=== PATIENT | female | born 1965 | race Caucasian/White ===

== ENCOUNTER 2018-12-27 21:54 | Emergency (ER) | payer SELFPAY ==
--- NOTE | 2018-12-27 22:43 | ED PDOC ---
HPI: Allergic Reaction Time Seen by Provider: 12/27/18 22:32 Chief Complaint (Nursing): Allergic Reaction Chief Complaint (Provider): Rash History Per: Patient, Family History/Exam Limitations: no limitations Additional Complaint(s): Pt reports itchy rash X 3 days, resolves on its own, swelling to bottom lip yesterday, now with swelling to upper lip and feeling throat is swollen. Has been taking only one 25 mg Benadryl dose per day. Denies SOB. Past Medical History Reviewed: Nursing Documentation, Vital Signs Vital Signs: Last Vital Signs Temp 98.6 F 12/27/18 22:22 Pulse 68 12/27/18 22:22 Resp 16 12/27/18 22:22 BP 143/88 12/27/18 22:22 Pulse Ox 100 12/27/18 22:22 - Medical History PMH: Depression - Surgical History Surgical History: Cholecystectomy - Family History Family History: States: Unknown Family Hx - Living Arrangements Living Arrangements: With Family - Social History Current smoker - smoking cessation education provided: No Alcohol: None - Allergies Allergies/Adverse Reactions: Allergies Allergy/AdvReac Type Severity Reaction Status Date / Time No Known Allergies Allergy Verified 12/27/18 22:40 Review of Systems Constitutional: Negative for: Fever, Chills ENT: Positive for: Mouth Swelling, Throat Swelling Cardiovascular: Negative for: Chest Pain Respiratory: Negative for: Cough, Shortness of Breath Gastrointestinal: Negative for: Abdominal Pain Genitourinary Female: Negative for: Dysuria, Hematuria Skin: Positive for: Rash Neurological: Negative for: Headache Physical Exam - Reviewed Nursing Documentation Reviewed: Yes Vital Signs Reviewed: Yes - Physical Exam Appears: Positive for: Well, No Acute Distress Head Exam: Positive for: ATRAUMATIC, NORMAL INSPECTION Skin: Positive for: Normal Color, Warm, Dry Eye Exam: Positive for: Normal appearance, EOMI, PERRL ENT: Positive for: Pharynx Is (Clear), Other (Mild uvula edema). Negative for: Pharyngeal Erythema, Tonsillar Swelling - ECG O2 Sat by Pulse Oximetry: 100 Disposition - Disposition Forms: [employer] (Lithuanian) Medical Decision Making Medical Decision Makin yo female with rash. - Benadryl - Pepcid - Prednisone
--- NOTE | 2018-12-27 23:10 | ED PDOC ---
- ECG O2 Sat by Pulse Oximetry: 100 (RA) Pulse Ox Interpretation: Normal Medical Decision Making Medical Decision Making: Time: 23:00 Patient care endorsed from Dr. Erickson to provider pending reevaluation. 00:35 Patient reports marked improvement of symptoms. Labs reviewed no clinically significant abnormalities. Patient is stable for discharge diagnosis is allergic reaction. Return precautions provided. 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 Scribe Attestation: Documented by Aurelio Mcclain acting as a scribe for Kris Erwin MD. Provider Scribe Attestation: All medical record entries made by the Scribe were at my direction and personally dictated by me. I have reviewed the chart and agree that the record accurately reflects my personal performance of the history, physical exam, medical decision making, and the department course for this patient. I have also personally directed, reviewed, and agree with the discharge instructions and disposition. Disposition - Clinical Impression Clinical Impression: Allergic reaction - POA Present On Arrival: None - Disposition Referrals: Berry Ramirez MD [Staff Provider] - Disposition: Routine/Home Disposition Time: 00:35 Condition: STABLE Additional Instructions: ALEX HEARD, thank you for letting us take care of you today. Your provider was Kris Erwin MD and you were treated for POSS. ALG. REACTION. The emergency medical care you received today was directed at your acute symptoms. If you were prescribed any medication, please fill it and take as directed. It may take several days for your symptoms to resolve. Return to the Emergency Department if your symptoms worsen, do not improve, or if you have any other problems. Please contact your doctor or call one of the physicians/clinics you have been referred to that are listed on the Patient Visit Information form that is included in your discharge packet. Bring any paperwork you were given at discharge with you along with any medications you are taking to your follow up visit. Our treatment cannot replace ongoing medical care by a primary care pr ovider outside of the emergency department. Thank you for allowing the [facility] team to be part of your care today. If you had an X-Ray or CT scan: A Radiologist will review the ED reading if any change in treatment is needed we will contact you. If you had a blood, urine, or wound culture: It will take several days for the results, if any change in treatment is needed we will contact you. If you had an STI test: It will take 48 hours for the results. Please call after 1 week if you have not heard back. Prescriptions: Cetirizine HCl [Zyrtec] 10 mg PO QAM #7 capsule Famotidine [Pepcid] 20 mg PO Q12 #14 tab Methylprednisolone [Medrol Dosepak] 4 mg PO ASDIR #1 pkg Instructions: Allergy Skin Testing Forms: [employer] (Occitan)
[2018-12-28 00:45] VITALS: BP 144/82; PULSE 63; RESP 15; TEMP 98.5
[2018-12-28 22:34] VITALS: O2SAT 100
== END 2018-12-28 00:48 | disposition home or self-care (01) ==
LOC: H.ER 21:54
DX: T78.40XA Allergy, unspecified, initial encounter (principal); Z86.59 Personal history of other mental and behavioral disorders